=== PATIENT | female | born 1985 | race Two or more races ===

== ENCOUNTER 2023-01-18 09:12 | Outpatient (CLI) | payer OTHER ==
[~2023-01-18 09:12] MED LIST: ADULT LOW DOSE81 M1 PO; ALDOMET500 MG; BUDESONIDE0.5 MG/2 M IH; CLONAZEPAM1 MG PO; LIPITOR20 MG PO; MECLIZINE HCL25 MG PO; MELOXICAM15 MG PO; NEURONTIN600 M1 PO; RISPERDAL1 MG PO; SIMVASTATIN20 MG PO; SINGULAIR10 MG PO; TOPROL XL50 M1 PO; XOPENEX0.63 MG/3 IH; ZYNCOF 20-400120 ML PO
== END 2023-01-18 09:24 | disposition home or self-care (01) ==
LOC: RAD 09:12
DX: M54.42 Lumbago with sciatica, left side (principal)

== ENCOUNTER 2023-09-24 07:48 | Emergency (ER) | payer OTHER ==
[~2023-09-24] VITALS: Ht 165.1 cm; Wt 145.1 kg
[2023-09-24] MEDS ORDERED: ZOLOFT100 MG PO (07:57)
[2023-09-24] MEDS ORDERED: 0.9 % SODIUM CHLORIDE 1,000 ML IV STA (08:59)
[2023-09-24 09:48] LABS: HEMATOCRIT 41.8 % (36.0-45.00); MEAN CELL VOLUME 82.1 fL (80.00-100.00); MEAN CORPUSCULAR HEMOGLOBIN 27.4 pg (27.00-32.0); MEAN CORPUSCULAR HGB CONC 33.4 g/dl (32.0-36.0); PLATELET COUNT 181 K/uL (150-450); RED BLOOD COUNT 5.09 M/uL (4.00-6.00); RED CELL DISTRIBUTION WIDTH 15.8 % (11.5-14.5)
[2023-09-24 09:52] LABS: PH,URINE 6.5 (5.0-8.0); URINE APPEARANCE Clear; URINE BILIRRUBIN Negative (NEGATIVE); URINE BLOOD Negative; URINE COLOR Yellow; URINE GLUCOSE Negative (NEGATIVE); URINE LEUKOCYTE Trace; URINE NITRATE Negative; URINE PROTEIN Negative (NEGATIVE); URINE UROBILINOGEN 0.2 E.U./dl
[2023-09-24 09:57] LABS: URINE BACTERIA 696.7 uL (0.0-1933); URINE RBC 6.8 uL (0.0-20.8); URINE WBC 17.7 uL (0.0-23.2)
[2023-09-24 10:36] LABS: ALBUMIN 3.4 gm/dL (3.4-5.0); BILIRUBIN TOTAL 0.49 mg/dL (0.3-1.2); BILIRUBIN,CONJUGATED 0.12 mg/dL (0.0-0.2); BILIRUBIN,UNCONJUGATED 0.37 mg/dL (0.0-0.6); CALCIUM 8.5 mg/dL (8.5-10.1); CREATININE SERUM 0.66 mg/dL (0.55-1.02); GFR 101.33; POTASSIUM 3.38 mEq/L (3.5-5.1); TOTAL PROTEIN 7.9 gm/dL (6.4-8.2)
== END 2023-09-24 14:08 | disposition home or self-care (01) ==
LOC: ER 07:49
PROVIDERS: General Practice
DX: R19.7 Diarrhea, unspecified (principal); I10 Essential (primary) hypertension; Z88.8 Allergy status to other drugs, medicaments and biological substances; M79.7 Fibromyalgia; Z87.09 Personal history of other diseases of the respiratory system; Z20.822 Contact with and (suspected) exposure to COVID-19

== ENCOUNTER 2024-09-24 15:15 | Emergency (ER) | payer OTHER ==
[~2024-09-24] VITALS: Ht 165.1 cm; Wt 108.4 kg
[~2024-09-24 15:15] MED LIST changes: +ZOLOFT100 MG PO
[2024-09-24] MEDS ORDERED: SERTRALINE HCL100 MG (15:57)
[2024-09-24] MEDS ORDERED: CIPROFLOXACIN IN 5 % DEXTROSE 400 MG/200 ML PIGGYBAG IV ONE (18:00)
[2024-09-24] MEDS ORDERED: 0.9 % SODIUM CHLORIDE 1,000 ML IV ONE (18:00)
[2024-09-24] MEDS ORDERED: CHOLESTYRAMINE/ASPARTAME LIGHT 4 G/PKT PACKET PO ONE (18:00)
[2024-09-24] MEDS ORDERED: ONDANSETRON HCL 2 MG/ML VIAL IV ONE (18:00)
[2024-09-24] MEDS ORDERED: FAMOtidine 10 MG/ML (4ML VIAL) IV ONE (18:00)
[2024-09-24 18:15] LABS: HEMATOCRIT 40.7 % (36.0-45.00); HEMOGLOBIN 13.8 g/dL (12.0-15.00); MEAN CELL VOLUME 87.2 fL (80.00-100.00); MEAN CORPUSCULAR HEMOGLOBIN 29.5 pg (27.00-32.0); MEAN CORPUSCULAR HGB CONC 33.9 g/dl (32.0-36.0); PLATELET COUNT 158 K/uL (150-450); RED BLOOD COUNT 4.67 M/uL (4.00-6.00); RED CELL DISTRIBUTION WIDTH 14.6 % (11.5-14.5)
[2024-09-24 18:36] LABS: PARTIAL THROMBOPLASTIN TIME 34.5 SECONDS (22.0-34.0); PROTHROMBIN TIME 10.9 SECONDS (9.0-11.5)
[2024-09-24 18:38] LABS: ALBUMIN 3.5 gm/dL (3.4-5.0); BILIRUBIN TOTAL 0.35 mg/dL (0.3-1.2); CALCIUM 8.2 mg/dL (8.5-10.1); CREATININE SERUM 0.74 mg/dL (0.55-1.02); GFR 88.31; GLOBULINA 3.9 G/DL (2.4-3.5); POTASSIUM 3.73 mEq/L (3.5-5.1); TOTAL PROTEIN 7.4 gm/dL (6.4-8.2)
[2024-09-24 19:08] LABS: PH,URINE 5.5 (5.0-8.0); URINE APPEARANCE Cloudy; URINE BILIRRUBIN Negative (NEGATIVE); URINE BLOOD Large; URINE COLOR Yellow; URINE GLUCOSE Negative (NEGATIVE); URINE KETONE Negative (NEGATIVE); URINE LEUKOCYTE Moderate; URINE NITRATE Negative; URINE PROTEIN 30 (NEGATIVE); URINE UROBILINOGEN 0.2 E.U./dl
[2024-09-24 19:11] LABS: URINE BACTERIA 380.6 uL (0.0-1933); URINE RBC 1761.7 uL (0.0-20.8); URINE WBC 161.4 uL (0.0-23.2)
[2024-09-24] MEDS ORDERED: PEPCID AC20 MG PO (20:50)
[2024-09-24] MEDS ORDERED: PROBIOTIC1 EAC2 PO (20:50)
[2024-09-24] MEDS ORDERED: BACTRIM DS TAB1 EACH PO (20:50)
== END 2024-09-24 21:15 | disposition home or self-care (01) ==
LOC: ER 15:18
PROVIDERS: General Practice
DX: R19.7 Diarrhea, unspecified (principal); N39.0 Urinary tract infection, site not specified; Z20.822 Contact with and (suspected) exposure to COVID-19; Z88.8 Allergy status to other drugs, medicaments and biological substances

== ENCOUNTER 2024-12-01 15:15 | Emergency (ER) | payer OTHER ==
[~2024-12-01] VITALS: Ht 165.1 cm; Wt 108.9 kg
[~2024-12-01 15:15] MED LIST changes: +BACTRIM DS TAB1 EACH PO; +PEPCID AC20 MG PO; +PROBIOTIC1 EAC2 PO; +SERTRALINE HCL100 MG
[2024-12-01] MEDS ORDERED: KETOROLAC TROMETHAMINE 30 MG VIAL IV STA (16:23)
[2024-12-01] MEDS ORDERED: METOCLOPRAMIDE HCL 5 MG/ML VIAL IM STA (16:24)
[2024-12-01] MEDS ORDERED: TRAMADOL HCL 50 MG TABLET PO STA (16:25)
[2024-12-01] MEDS ORDERED: KETOROLAC TROMETHAMINE 30 MG VIAL ONE (16:28)
[2024-12-01] MEDS ORDERED: METOCLOPRAMIDE HCL 5 MG/ML VIAL ONE (16:28)
[2024-12-01 16:55] LABS: BASO % 0.3 % (0.1-1.2); EOS # 0.09 (0.04-0.54); EOS % 1.2 % (0.7-7.0); HEMATOCRIT 43.1 % (34.1-44.9); HEMOGLOBIN 14.1 g/dL (11.2-15.7); LYMPH # 2.87 (1.18-3.74); LYMPH % 39.4 % (19.3-53.1); MEAN CORPUSCULAR HEMOGLOBIN 28.9 pg (25.6-32.2); MONO # 0.62 (0.24-0.82); MONO % 8.5 % (4.7-12.5); NEUT # 3.67 (1.56-6.13); NEUT % 50.3 % (34.0-71.1); PLATELET COUNT 200 K/uL (163-369); RED BLOOD COUNT 4.88 M/uL (3.93-5.22)
[2024-12-01 17:14] LABS: CALCIUM 9.1 mg/dL (8.5-10.1); CREATININE SERUM 0.73 mg/dL (0.55-1.02); GFR 89.7; POTASSIUM 4.02 mEq/L (3.5-5.1)
[2024-12-01 17:20] LABS: INR 0.94; PARTIAL THROMBOPLASTIN TIME 28.4 SECONDS (22.0-34.0); PROTHROMBIN TIME 10.3 SECONDS (9.0-11.5)
== END 2024-12-01 18:56 | disposition home or self-care (01) ==
LOC: ER 15:36
DX: N94.0 Mittelschmerz (principal); R10.9 Unspecified abdominal pain; Z88.1 Allergy status to other antibiotic agents

== ENCOUNTER 2024-12-02 11:09 | Emergency (ER) | payer OTHER ==
[~2024-12-02] VITALS: Ht 165.1 cm; Wt 108.9 kg
[2024-12-02 11:30] VITALS: BP 123/84; O2SAT 99
[2024-12-02] MEDS ORDERED: DIATRIZOATE MEGLUMINE, SODIUM 30 ML BOTTLE ONE (11:48)
[2024-12-02 12:06] LABS: BASO % 0.3 % (0.1-1.2); EOS # 0.06 (0.04-0.54); HEMATOCRIT 39.3 % (34.1-44.9); HEMOGLOBIN 12.9 g/dL (11.2-15.7); LYMPH # 2.23 (1.18-3.74); LYMPH % 38.4 % (19.3-53.1); MONO # 0.55 (0.24-0.82); MONO % 9.5 % (4.7-12.5); NEUT # 2.94 (1.56-6.13); NEUT % 50.6 % (34.0-71.1); PLATELET COUNT 176 K/uL (163-369); RED BLOOD COUNT 4.45 M/uL (3.93-5.22); RED CELL DISTRIBUTION WIDTH 13.9 % (11.6-14.4)
[2024-12-02 12:37] LABS: CALCIUM 8.6 mg/dL (8.5-10.1); CREATININE SERUM 0.72 mg/dL (0.55-1.02); GFR 91.14; POTASSIUM 4.09 mEq/L (3.5-5.1)
[2024-12-02 13:12] LABS: URINE APPEARANCE Cloudy; URINE BILIRRUBIN Negative (NEGATIVE); URINE BLOOD Negative; URINE COLOR Yellow; URINE GLUCOSE Negative (NEGATIVE); URINE KETONE Negative (NEGATIVE); URINE LEUKOCYTE Negative; URINE NITRATE Negative; URINE PROTEIN Negative (NEGATIVE); URINE UROBILINOGEN 0.2 E.U./dl
[2024-12-02 13:16] LABS: URINE BACTERIA 2019.5 uL (0.0-1933); URINE EPITHELIAL CELLS 30.2 uL (0.0-38.8); URINE RBC 21.9 uL (0.0-20.8); URINE WBC 15.6 uL (0.0-23.2)
[2024-12-02 13:50] LABS: URINE CAST 0.14 uL (0.0-1.40)
== END 2024-12-02 17:10 | disposition home or self-care (01) ==
LOC: ER 11:15
PROVIDERS: Emergency Medicine
DX: R10.84 Generalized abdominal pain (principal); N20.0 Calculus of kidney; N83.201 Unspecified ovarian cyst, right side; I10 Essential (primary) hypertension; Z88.8 Allergy status to other drugs, medicaments and biological substances

== ENCOUNTER 2024-12-03 08:52 | Outpatient (CLI) | payer OTHER | END 2024-12-03 09:07 | disposition home or self-care (01) | LOC: MRI 08:52 | DX: M54.2 Cervicalgia (principal) | CPT/HCPCS: 72141 ==

== ENCOUNTER 2024-12-30 11:27 | Outpatient (CLI) | payer OTHER | END 2024-12-30 11:36 | disposition home or self-care (01) | LOC: RAD 11:27 | DX: S92.202A Fracture of unspecified tarsal bone(s) of left foot, initial encounter for closed fracture (principal) ==

== ENCOUNTER 2025-03-09 15:09 | Emergency (ER) | payer OTHER ==
[~2025-03-09] VITALS: Ht 165.1 cm; Wt 111.1 kg
[2025-03-09 16:18] VITALS: BP 106/73; O2SAT 99
[2025-03-09] MEDS ORDERED: 0.9 % SODIUM CHLORIDE 500 ML IV ONE (17:00)
[2025-03-09] MEDS ORDERED: FAMOTIDINE/PF 20 MG/2 ML VIAL IV ONE (17:00)
[2025-03-09] MEDS ORDERED: ONDANSETRON HCL 2 MG/ML VIAL IV ONE (17:00)
[2025-03-09 18:03] LABS: BASO % 0.3 % (0.1-1.2); EOS # 0.10 (0.04-0.54); EOS % 1.4 % (0.7-7.0); LYMPH # 2.64 (1.18-3.74); LYMPH % 37.4 % (19.3-53.1); MEAN PLATELET VOLUME 11.40 fl (9.4-12.4); MONO # 0.62 (0.24-0.82); MONO % 8.8 % (4.7-12.5); NEUT # 3.66 (1.56-6.13); NEUT % 51.8 % (34.0-71.1); RED CELL DISTRIBUTION WIDTH 13.5 % (11.6-14.4)
[2025-03-09 18:16] LABS: ob POSITIVE (NEGATIVE)
[2025-03-09 18:23] LABS: INR 0.97
[2025-03-09 18:28] LABS: ALT/SGPT 31.0 U/L (12-78); AST/SGOT 13.0 U/L (15-37); BILIRUBIN TOTAL 0.32 mg/dL (0.3-1.2); BUN CREA RATIO 24.0 (7.0-25.0); CREATININE SERUM 0.82 mg/dL (0.55-1.02); GFR 78.02; GLOBULINA 4.1 G/DL (2.4-3.5); GLUCOSE FASTING 72.0 mg/dL (65-100); OSMOLALITY SERUM 284.0 MOSM/KG (275-295)
[2025-03-09] MEDS ORDERED: ANALPRAM HC 2.530 GM RECTAL (21:30)
== END 2025-03-09 21:55 | disposition home or self-care (01) ==
LOC: ER 15:09
PROVIDERS: General Practice
DX: K62.5 Hemorrhage of anus and rectum (principal); N20.0 Calculus of kidney; R10.31 Right lower quadrant pain; I10 Essential (primary) hypertension; G47.30 Sleep apnea, unspecified; Z88.8 Allergy status to other drugs, medicaments and biological substances; Z87.09 Personal history of other diseases of the respiratory system